=== PATIENT | female | born 1990 ===

== ENCOUNTER → 2021-09-21 | Outpatient (CLI) | payer OTHER ==
[2021-09-23 15:07] LABS: HPV 16 Positive (Negative); HPV 18 Negative (Negative); HPV OTHER HR TYPES Negative (Negative)
== END | disposition home or self-care (01) ==
LOC: LAB SHORT 12:19 → LAB 12:19
PROVIDERS: Family Medicine
DX: Z12.4 Encounter for screening for malignant neoplasm of cervix (principal); R87.610 Atypical squamous cells of undetermined significance on cytologic smear of cervix (ASC-US)
CPT/HCPCS: 87624; 88142

== ENCOUNTER → 2021-10-25 | Outpatient (CLI) | payer OTHER | END | disposition home or self-care (01) | LOC: LAB SHORT 08:00 → PLD 08:00 | DX: C53.1 Malignant neoplasm of exocervix (principal) | CPT/HCPCS: 88305 ==

== ENCOUNTER → 2023-04-23 | Outpatient (CLI) | payer BC ==
[2023-04-23 14:54] LABS: Candida Group, PCR NOT DETECTED (NOT DETECT); Candida glabrata-krusei, PCR NOT DETECTED (NOT DETECT)
[2023-04-23 14:55] LABS: Bacterial Vaginosis PCR Positive (NEGATIVE)
[2023-04-27 11:18] LABS: HPV HIGH RISK BY TMA Detected; HPV SOURCE Cervical
[2023-04-30 12:02] LABS: HPV GENOTYPE 16 BY TMA Detected; HPVG SOURCE Cervical
[2023-04-30 12:04] LABS: HPV GENOTYPE 18/45 BY TMA Not Detected
== END | disposition home or self-care (01) ==
LOC: LAB SHORT 10:10 → LAB 10:10
PROVIDERS: Family Medicine
DX: Z12.4 Encounter for screening for malignant neoplasm of cervix (principal); N89.8 Other specified noninflammatory disorders of vagina
CPT/HCPCS: 87481; 87624; 87625; 87661; 87801; G0123